=== PATIENT | male | born 1985 | race Caucasian/White ===

== ENCOUNTER 2022-07-19 20:14 | Emergency (ER) | payer OTHER ==
[~2022-07-19] VITALS: Ht 182.9 cm; Wt 78.5 kg
[2022-07-19 20:25] VITALS: BP 142/97
== END 2022-07-19 20:59 | disposition home or self-care (01) ==
LOC: ER 20:14
DX: S46.911A Strain of unspecified muscle, fascia and tendon at shoulder and upper arm level, right arm, initial encounter (principal); X58.XXXA Exposure to other specified factors, initial encounter
CPT/HCPCS: 99282